=== PATIENT | male | born 1980 | race Caucasian/White ===

== ENCOUNTER → 2018-12-19 | Outpatient (CLI) | payer OTHER ==
[2018-12-19 11:31] LABS: ABSOLUTE BASOPHILS 0.1 thou/uL (0.0-0.2); ABSOLUTE EOSINOPHILS 0.2 thou/uL (0.0-0.7); ABSOLUTE LYMPHOCYTES 1.1 thou/uL (0.8-5.3); ABSOLUTE MONOCYTES 0.4 thou/uL (0.0-1.2); ABSOLUTE NEUTROPHILS 2.2 thou/uL (1.6-8.1); BASOPHILS 1.9 %; EOSINOPHILS 4.7 %; HEMATOCRIT 45.7 % (42.0-52.0); HEMOGLOBIN 15.5 gm/dL (14.0-18.0); LYMPHOCYTES 28.7 %; MCH 35.2 pg (26.0-34.0); MCV 103.5 fL (80.0-100.0); MPV 7.7 fl. (7.2-11.1); NUCLEATED RBCS 0 /100WBC; PLATELET COUNT* 148 thou/uL (150-400); POLYS 54.7 %; RBC 4.42 mil/uL (4.50-6.00); RDW-CV 12.7 % (10.5-14.5)
[2018-12-19 12:14] LABS: ALBUMIN 4.2 g/dL (3.4-5.0); ALKALINE PHOSPHATASE 90 U/L (46-116); ANION GAP 9 mmol/L (7-16); BUN 4 mg/dL (7-18); CALCIUM 8.7 mg/dL (8.5-10.1); CHLORIDE 96 mmol/L (98-107); CHOLESTEROL 229 mg/dL (<200); CO2 27 mmol/L (21-32); CREATININE 0.6 mg/dL (0.6-1.3); DIRECT BILIRUBIN 0.2 mg/dL (<0.1-0.3); GLUCOSE 108 mg/dL (70-99); HDL CHOLESTEROL 146 mg/dL (>40); LDL CHOLESTEROL 72 mg/dL (<100); SGOT 169 U/L (15-37); SGPT 132 U/L (30-65); SODIUM 132 mmol/L (136-145); TC:HDL 1.6 Ratio (Not establshd); TOTAL BILIRUBIN 0.4 mg/dL (<0.1-1.0); TRIGLYCERIDE 56 mg/dL (<150); VLDL 11 mg/dL (<40)
[2018-12-19 12:20] LABS: SERUM ASSESSMENT Clear
[2018-12-19 19:07] LABS: TESTOSTERONE 540 ng/dL (264-916)
[2018-12-22 03:05] LABS: FREE TESTOSTERONE 16.1 pg/mL (8.7-25.1)
== END ==
LOC: M.LAB 11:09
PROVIDERS: Registered Nurse Diabetes Educator
DX: Z13.220 Encounter for screening for lipoid disorders (principal); N52.9 Male erectile dysfunction, unspecified; J30.9 Allergic rhinitis, unspecified; K21.9 Gastro-esophageal reflux disease without esophagitis; Z79.899 Other long term (current) drug therapy; Z87.898 Personal history of other specified conditions; F41.9 Anxiety disorder, unspecified